=== PATIENT | female | born 2000 | race Hispanic/Latino ===

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

== ENCOUNTER 2022-04-29 23:22 | Emergency (ER) | payer OTHER ==
[2022-04-29] MEDS ORDERED: NA CHLORIDE 0.9% 1,000 ML ONE (23:47)
[2022-04-29] MEDS ORDERED: DICYCLOMINE HCL 20 MG/2 ML AMP IM ONE (23:47)
[2022-04-30 00:03] LABS: Absolute Lymphocytes (CBC) 3.5 K/uL (0.7-4.9); Hematocrit 36.1 % (36.0-45.0); Lymphocytes % 35.9 % (15.3-44.8); MPV 7.6 fL (7.6-11.3); RBC Red Blood Cell Count 4.25 M/uL (3.86-4.86)
[2022-04-30 00:34] LABS: Potassium 3.8 mmol/L (3.5-5.1)
[2022-04-30 00:46] LABS: Urine Blood Negative (Negative); Urine Glucose Negative (Negative); Urine Protein Negative (Negative); Urine Specific Gravity >=1.030 (1.005-1.030); Urine pH 6.5 (5.0-7.0)
[2022-04-30 01:20] LABS: Urine Bacteria <20 /HPF (<20); Urine Mucus Slight /HPF (None Seen)
--- NOTE | 2022-04-30 01:31 | ER ---
Nurse's Notes [facility] Name: Jaylin Day Age: 21 yrs Sex: Female : 2000 Arrival Date: 04/29/2022 Time: 23:25 Bed 20 Private MD: Diagnosis: Threatened Presentation: 04/29 23:31 Chief complaint: Patient states: "I'm 6 weeks and today I have had a little as6 bit of spotting and cramping in my back". Coronavirus screen: At this time, the client does not indicate any symptoms associated with coronavirus-19. Ebola Screen: No symptoms or risks identified at this time. Initial Sepsis Screen: Does the patient meet any 2 criteria? No. Patient's initial sepsis screen is negative. Does the patient have a suspected source of infection? No. Patient's initial sepsis screen is negative. Risk Assessment: Do you want to hurt yourself or someone else? Patient reports no desire to harm self or others. Onset of symptoms was April 29, 2022 at 20:00. 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 - Social history:: Smoking status: Patient denies any tobacco usage or history of. Screenin:58 [facility] ED Fall Risk Assessment (Adult) History of falling in the last 3 months, aa9 including since admission No falls in past 3 months (0 pts) Confusion or Disorientation No (0 pts) Intoxicated or Sedated No (0 pts) Impaired Gait No (0 pts) Mobility Assist Device Used No (0 pt) Altered Elimination No (0 pt) Score/Fall Risk Level 0 - 2 = Low Risk Oriented to surroundings, Maintained a safe environment. Abuse screen: Denies threats or abuse. Denies injuries from another. Nutritional screening: No deficits noted. Tuberculosis screening: No symptoms or risk factors identified. Assessment: 23:56 General: Appears in no apparent distress. comfortable, Behavior is calm, cooperative. aa9 Pain: Complains of pain in suprapubic area Pain currently is 4 out of 10 on a pain scale. Quality of pain is described as crampy. Neuro: Level of Consciousness is awake, alert, obeys commands, Oriented to person, place, time, situation. Cardiovascular: Patient's skin is warm and dry. Respiratory: Airway is patent Respiratory effort is even, unlabored. GI: Abdomen is obese. : Reports vaginal bleeding that is spotty. 04/30 01:40 Reassessment: Patient appears in no apparent distress at this time. Patient is alert, aa9 oriented x 3, equal unlabored respirations, skin warm/dry/pink. Patient denies pain at this time. Patient states feeling better. Vital Signs: 04/29 23:31 BP 126 / 78; Pulse 66; Resp 18 S; Temp 97.8(O); Pulse Ox 99% on R/A; Weight 101.15 kg as6 (R); Height 5 ft. 6 in. (167.64 cm) (R); Pain 4/10; 23:58 BP 117 / 70; Pulse 68; Resp 18 S; Pulse Ox 99% on R/A; aa9 04/30 01:34 BP 111 / 72; Pulse 65; Resp 18 S; Pulse Ox 98% on R/A; aa9 04/29 23:31 Body Mass Index 35.99 (101.15 kg, 167.64 cm) as6 ED Course: 04/29 23:25 Patient arrived in ED. jj6 23:27 Alexis Donaldson PA is PHCP. cp 23:27 Misha Tobar MD is Attending Physician. cp 23:31 Arm band placed on. as6 23:33 Triage completed. as6 23:35 Melissa Donis, ANNA is Primary Nurse. aa9 23:50 Inserted saline lock: 20 gauge in right antecubital area, using aseptic technique. aa9 Blood collected. 23:56 Abo/rh Typing Sent. aa9 23:56 Basic Metabolic Panel Sent. aa9 23:56 CBC with Diff Sent. aa9 23:56 Quantitative Hcg Sent. aa9 23:58 Patient has correct armband on for positive identification. Placed in gown. Bed in low aa9 position. Side rails up X2. Adult w/ patient. 04/30 00:46 Urine Microscopic Only Sent. aa9 01:39 No provider procedures requiring assistance completed. IV discontinued, intact, aa9 bleeding controlled, No redness/swelling at site. Pressure dressing applied. Administered Medications: 04/29 23:55 Drug: Dicyclomine 20 mg Route: IM; Site: right deltoid; aa9 23:56 Drug: NS 0.9% 1000 ml Route: IV; Rate: 1 bolus; Site: right antecubital; aa9 Medication: 23:58 VIS not applicable for this client. aa9 Point of Care Testing: Urine : 04/30 00:46 hCG Reading: Positive; Control Reading: Positive; aa9 Outcome: 01:31 Discharge ordered by . cp 01:39 Discharged to home ambulatory, with family. aa9 01:39 Condition: stable 01:39 Discharge instructions given to patient, Instructed on discharge instructions, follow up and referral plans. Demonstrated understanding of instructions, follow-up care. 01:40 Patient left the ED. aa9 Signatures: Alexis Donaldson PA PA cp Jeffries, Jennifer jj6 Ap Torres, ANNA RN as6 Melissa Donis RN RN aa9
--- NOTE | 2022-04-30 01:31 | EDPHYS ---
Physician Documentation [facility] Name: Jaylin Day Age: 21 yrs Sex: Female : 2000 Arrival Date: 04/29/2022 Time: 23:25 Bed 20 Private MD: ED Physician Misha Tobar HPI: 04/29 23:37 This 21 yrs old Female presents to ER via Ambulatory with complaints of Est 6 cp wks gestation, Pelvic Pain. 23:37 The patient presents to the emergency department with abdominal pain, of the right cp flank, vaginal bleeding, described as spotting. The estimated gestational age is 6 weeks. 23:37 course: care: at a clinic, Leakage of Fluid: none appreciated, cp Ultrasound: the patient had an ultrasound. Associated signs and symptoms: Pertinent negatives: chest pain, dysuria, fever, ruptured membranes, vomiting. 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 - Social history:: Smoking status: Patient denies any tobacco usage or history of. ROS: 23:40 Constitutional: Negative for body aches, chills, fever, poor PO intake. cp 23:40 Abdomen/GI: Positive for abdominal cramps, of the lower abdomen, Negative for vomiting, cp diarrhea, constipation. 23:40 Respiratory: Negative for cough, shortness of breath, wheezing. cp 23:40 : Positive for vaginal bleeding, Negative for urinary symptoms. 23:40 Neuro: Negative for altered mental status, headache, weakness. 23:40 All other systems are negative. Exam: 23:45 Constitutional: The patient appears in no acute distress, alert, awake, comfortable, cp non-toxic, well developed, well nourished, obese. 23:45 Head/Face: Normocephalic, atraumatic. cp 23:45 Eyes: Periorbital structures: appear normal, Conjunctiva: normal, no exudate, no injection, Sclera: no appreciated abnormality, Lids and lashes: appear normal, bilaterally. 23:45 ENT: External ear(s): are unremarkable, Nose: is normal, Mouth: Lips: moist, Oral mucosa: moist, Posterior pharynx: Airway: no evidence of obstruction, patent. 23:45 Chest/axilla: Inspection: normal. 23:45 Cardiovascular: Rate: normal, Rhythm: regular. 23:45 Respiratory: the patient does not display signs of respiratory distress, Respirations: normal, no use of accessory muscles, no retractions, labored breathing, is not present, Breath sounds: are clear throughout, no decreased breath sounds, no stridor, no wheezing. 23:45 Abdomen/GI: Inspection: abdomen appears normal, Palpation: soft, in all quadrants, mild abdominal tenderness, in the lower abdomen, rebound tenderness, is not appreciated, involuntary guarding, is not appreciated. 23:45 Back: ROM is normal, CVA tenderness, is absent. Vital Signs: 23:31 BP 126 / 78; Pulse 66; Resp 18 S; Temp 97.8(O); Pulse Ox 99% on R/A; Weight 101.15 kg as6 (R); Height 5 ft. 6 in. (167.64 cm) (R); Pain 4/10; 23:58 BP 117 / 70; Pulse 68; Resp 18 S; Pulse Ox 99% on R/A; aa9 04/30 01:34 BP 111 / 72; Pulse 65; Resp 18 S; Pulse Ox 98% on R/A; aa9 04/29 23:31 Body Mass Index 35.99 (101.15 kg, 167.64 cm) as6 MDM: 04/29 23:28 Patient medically screened. cp 04/30 01:30 Data reviewed: vital signs, nurses notes, lab test result(s), radiologic studies, cp ultrasound. 01:30 Consideration of Admission/Observation Escalation of care including cp admission/observation considered. Counseling: I had a detailed discussion with the patient and/or guardian regarding: the historical points, exam findings, and any diagnostic results supporting the discharge/admit diagnosis, lab results, radiology results, the need for outpatient follow up, an OB/Gyne specialist. Response to treatment: the patient's symptoms have markedly improved after treatment, and as a result, I will discharge patient. 04/29 23:28 Order name: Urine Microscopic Only cp 04/29 23:37 Order name: Abo/rh Typing cp 04/29 23:37 Order name: Basic Metabolic Panel cp 04/29 23:37 Order name: CBC with Diff cp 04/29 23:37 Order name: Quantitative Hcg cp 04/30 00:07 Order name: CBC with Automated Diff; Complete Time: 01:08 EDMS 04/30 01:09 Interpretation: Normal except: RDW 15.5. cp 04/29 23:37 Order name: US Transvaginal Ob 04/30 00:20 Order name: ABO/RH typing; Complete Time: 01:08 EDMS 04/30 01:09 Interpretation: Reviewed. 04/30 00:34 Order name: Basic Metabolic Panel; Complete Time: 01:08 EDMS 04/30 01:09 Interpretation: Normal except: CL 108; GLUC 108; CA 8.3. 04/30 00:34 Order name: HCG, Quantitative; Complete Time: 01:08 EDMS 04/30 01:09 Interpretation: HCGQ 45326; Reviewed. 04/30 00:46 Order name: Urine Dipstick-Ancillary; Complete Time: 01:08 EDMS 04/30 01:20 Order name: Urine Microscopic Only; Complete Time: 01:29 EDMS 04/30 01:30 Interpretation: Normal except: URBC 5-10. 04/29 23:28 Order name: Urine Test (obtain specimen); Complete Time: 00:46 cp 04/29 23:28 Order name: Urine Dipstick-Ancillary (obtain specimen); Complete Time: 00:46 cp 04/29 23:37 Order name: IV Saline Lock; Complete Time: 23:56 cp 04/29 23:37 Order name: Labs collected and sent; Complete Time: 23:56 cp 04/29 23:37 Order name: NPO; Complete Time: 23:56 cp Administered Medications: 04/29 23:55 Drug: Dicyclomine 20 mg Route: IM; Site: right deltoid; aa9 23:56 Drug: NS 0.9% 1000 ml Route: IV; Rate: 1 bolus; Site: right antecubital; aa9 Point of Care Testing: Urine : 04/30 00:46 hCG Reading: Positive; Control Reading: Positive; aa9 Disposition: 02:04 Co-signature as Attending Physician, Misha Tobar MD I reviewed the patient's care rn provided by the Advanced Practice Provider and agree with the diagnosis and treatment plan. Disposition Summary: 04/30/22 01:31 Discharge Ordered Location: Home cp Problem: new cp Symptoms: have improved cp Condition: Stable cp Diagnosis - Threatened cp Followup: cp - With: Private Physician - When: 1 week - Reason: Recheck today's complaints Discharge Instructions: - Discharge Summary Sheet cp - Abdominal Pain During cp - Care cp - Threatened Miscarriage cp - Vaginal Bleeding During , First Trimester cp - First Trimester of cp - Activity Restriction During cp Forms: - Medication Reconciliation Form cp - Thank You Letter cp - Antibiotic Education cp - Prescription Opioid Use cp Signatures: Dispatcher [employer] EDMisha Luevano MD MD rn Page, Corey, PA PA cp Ap Torres RN RN as6 Melissa Donis RN RN aa9
[2022-04-30 02:18] VITALS: TEMP 97.8
[2022-04-30 02:20] VITALS: BP 111/72; O2SAT 98
--- NOTE | 2022-04-30 14:44 | RAD REPORT ---
EXAM DESCRIPTION: US - Transvaginal OB - 04/30/2022 12:25 am CLINICAL HISTORY: Abd cramping, TECHNIQUE: Real-time transvaginal obstetrical ultrasound of the maternal pelvis and a first trimeste r with image documentation. Transvaginal imaging was used for better evaluation of the fe tus and adnexa. COMPARISON: No relevant prior studies available. FINDINGS: Gestation: Single intrauterine gestational sac. The crown-rump length measures 17.2 mm corresponding to an estimated gestational age of 8 weeks 0 days. cardiac activity measures 1 40 BPM. Placenta/amniotic fluid: Cannot be adequately evaluated due to the early gestational age. Uterus/cervix: The uterus is anteverted. The cervix measures 3.8 cm in length. No myometrial ma ss. Ovaries: The right ovary measures 3 x 1.8 x 1.7 cm. The left ovary is not visualized. Free fluid: No free fluid. IMPRESSION: 1. Single live intrauterine gestation. No focal complication. 2. Estimated gestational age by ultrasound is 8 weeks 0 days. 3. Estimated due date by ultrasound is 12/10/2022. Electronically signed by: Israel Crow MD 04/30/2022 12:46 AM RETAIL GREETER Due to temporary technical issues with the PACS/Fluency reporting system, reports are being signed by the in house radiologists without review as a courtesy to insure prompt reporting. The interpreting radiologist is fully responsible for the content of the report.
== END 2022-04-30 01:40 | disposition home or self-care (01) ==
LOC: ER 23:22
DX: O20.0 Threatened abortion (principal); Z88.0 Allergy status to penicillin; Z88.1 Allergy status to other antibiotic agents
CPT/HCPCS: 85025; 80048; 36415; 86900; 86901; 84702; 76817; J0500; J7030; 81003; 81015

== ENCOUNTER 2022-05-15 00:38 | Emergency (ER) | payer OTHER ==
[2022-05-15 01:27] LABS: Urine Glucose Negative (Negative)
[2022-05-15 01:28] LABS: Urine Blood Trace-intact (Negative); Urine Protein Negative (Negative); Urine pH 5.5 (5.0-7.0)
[2022-05-15] MEDS ORDERED: NA CHLORIDE 0.9% 1,000 ML ONE (02:27)
[2022-05-15 03:16] LABS: Absolute Lymphocytes (CBC) 3.8 K/uL (0.7-4.9); Hematocrit 36.7 % (36.0-45.0); Lymphocytes % 36.5 % (15.3-44.8); MCV 85.7 fL (80-100); MPV 8.1 fL (7.6-11.3); RBC Red Blood Cell Count 4.29 M/uL (3.86-4.86)
[2022-05-15 03:20] VITALS: TEMP 97.7
[2022-05-15 03:21] VITALS: BP 115/73; O2SAT 100
[2022-05-15 03:28] LABS: Potassium 3.5 mmol/L (3.5-5.1)
--- NOTE | 2022-05-15 12:29 | RAD REPORT ---
EXAM DESCRIPTION: US - Transvaginal OB - 05/15/2022 2:00 am ADDENDUM #1 THIS REPORT CONTAINS FINDINGS THAT MAY BE CRITICAL TO PATIENT CARE: The findings were verbally discu ssed via telephone conference with Dr. Alexis Goldman by Dr. Javi Potter on 05/15/2022 2:42 AM CS T .The results were acknowledged and understood. Electronically signed by: Breanna Potter MD 05/15/2022 2:42 AM LOCKSMITH End of Addendum EXAM DESCRIPTION: US , Transvaginal CLINICAL HISTORY: The patient is 21 years old and is Female; ABD CRAMPING, TECHNIQUE: Real-time transvaginal obstetrical ultrasound of the maternal pelvis and a first trimeste r with image documentation. Transvaginal imaging was used for better evaluation of the fe tus and adnexa. COMPARISON: Ultrasound April 30, 2022 FINDINGS: GESTATION: A irregular appearing intrauterine gestational sac is present. A small yolk s ac is noted. A pole with a crown-rump length of 1.7 cm correlating to 8 weeks 0 days is present . No heart tones are detected. PLACENTA/AMNIOTIC FLUID: Hypoechoic area adjacent to the gestational sac consistent with a subch orionic hemorrhage is noted. UTERUS/CERVIX: Unremarkable. No myometrial mass. OVARIES: The ovaries are not visualized. No mass. FREE FLUID: No free fluid. IMPRESSION: Findings consistent with a failed first trimester . Electronically signed by: Breanna Potter MD 05/15/2022 2:29 AM LOCKSMITH Due to temporary technical issues with the PACS/Fluency reporting system, reports are being signed by the in house radiologists without review as a courtesy to insure prompt reporting. The interpreting radiologist is fully responsible for the content of the report.
--- NOTE | 2022-05-29 16:18 | EDPHYS ---
Physician Documentation [facility] Name: Jaylin Day Age: 21 yrs Sex: Female : 2000 Arrival Date: 05/15/2022 Time: 00:44 Bed 3 Private MD: ED Physician Alexis Goldman HPI: 05/15 02:28 This 21 yrs old Female presents to ER via Ambulatory with complaints of 10 WKS arpan PREG CRAMPING SPOTING. 02:28 The patient presents to the emergency department with no movement, vaginal arpan bleeding, that is moderate. The estimated gestational age is 8 weeks. course: care: none. The patient has experienced a previous episode, last week. 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 - Social history:: Smoking status: Patient denies any tobacco usage or history of. - Family history:: not pertinent. ROS: 02:28 Constitutional: Negative for fever, chills, and weight loss, Eyes: Negative for injury, arpan pain, redness, and discharge, ENT: Negative for injury, pain, and discharge, Neck: Negative for injury, pain, and swelling, Cardiovascular: Negative for chest pain, palpitations, and edema, Respiratory: Negative for shortness of breath, cough, wheezing, and pleuritic chest pain, Abdomen/GI: Negative for abdominal pain, nausea, vomiting, diarrhea, and constipation, Back: Negative for injury and pain, : Negative for injury, bleeding, discharge, and swelling, MS/Extremity: Negative for injury and deformity, Skin: Negative for injury, rash, and discoloration, Neuro: Negative for headache, weakness, numbness, tingling, and seizure, Psych: Negative for depression, anxiety, suicide ideation, homicidal ideation, and hallucinations, Allergy/Immunology: Negative for hives, rash, and allergies, Endocrine: Negative for neck swelling, polydipsia, polyuria, polyphagia, and marked weight changes, Hematologic/Lymphatic: Negative for swollen nodes, abnormal bleeding, and unusual bruising. Exam: 02:28 Constitutional: This is a well developed, well nourished patient who is awake, alert, arpan and in no acute distress. Head/Face: Normocephalic, atraumatic. Eyes: Pupils equal round and reactive to light, extra-ocular motions intact. Lids and lashes normal. Conjunctiva and sclera are non-icteric and not injected. Cornea within normal limits. Periorbital areas with no swelling, redness, or edema. ENT: Nares patent. No nasal discharge, no septal abnormalities noted. Tympanic membranes are normal and external auditory canals are clear. Oropharynx with no redness, swelling, or masses, exudates, or evidence of obstruction, uvula midline. Mucous membranes moist. Neck: Trachea midline, no thyromegaly or masses palpated, and no cervical lymphadenopathy. Supple, full range of motion without nuchal rigidity, or vertebral point tenderness. No Meningismus. Chest/axilla: Normal chest wall appearance and motion. Nontender with no deformity. No lesions are appreciated. Cardiovascular: Regular rate and rhythm with a normal S1 and S2. No gallops, murmurs, or rubs. Normal PMI, no JVD. No pulse deficits. Respiratory: Lungs have equal breath sounds bilaterally, clear to auscultation and percussion. No rales, rhonchi or wheezes noted. No increased work of breathing, no retractions or nasal flaring. Abdomen/GI: Soft, non-tender, with normal bowel sounds. No distension or tympany. No guarding or rebound. No evidence of tenderness throughout. Back: No spinal tenderness. No costovertebral tenderness. Full range of motion. Pelvic Exam: Normal external genitalia. Speculum exam with closed cervical os, no discharge or bleeding noted. Bimanual exam with normal adnexa, no adnexal or cervical motion tenderness. Normal uterus. Skin: Warm, dry with normal turgor. Normal color with no rashes, no lesions, and no evidence of cellulitis. MS/ Extremity: Pulses equal, no cyanosis. Neurovascular intact. Full, normal range of motion. Neuro: Awake and alert, GCS 15, oriented to person, place, time, and situation. Cranial nerves II-XII grossly intact. Motor strength 5/5 in all extremities. Sensory grossly intact. Cerebellar exam normal. Normal gait. Psych: Awake, alert, with orientation to person, place and time. Behavior, mood, and affect are within normal limits. Vital Signs: 01:05 Weight 101.15 kg; Height 5 ft. 6 in. ; Pain 2/10; vc1 01:15 BP 115 / 74; Pulse 72; Resp 18; Temp 97.7; Pulse Ox 98% ; vc1 02:40 BP 115 / 73; Pulse 61; Resp 18 S; Pulse Ox 100% on R/A; as6 01:05 Body Mass Index 35.99 (101.15 kg, 167.64 cm) vc1 01:05 Pain Scale: Adult vc1 MDM: 01:06 Patient medically screened. [facility] 02:28 Differential diagnosis: Data reviewed: vital signs, nurses notes, lab test result(s), [facility] radiologic studies, ultrasound. Consideration of Admission/Observation Escalation of care including admission/observation considered. I considered the following discharge prescriptions or medication management in the emergency department Medications were administered in the Emergency Department. See MAR. Independent interpretation of the following test(s) in the Emergency Department Radiology Department Ultrasound: My interpretation is 8 weeks, no fht's. Test considered but Not performed: EKG: ekg not necessary. 05/15 01:06 Order name: Abo/rh Typing [facility] 05/15 01:06 Order name: Basic Metabolic Panel [facility] 05/15 01:06 Order name: CBC with Diff [facility] 05/15 01:06 Order name: Quantitative Hcg [facility] 05/15 01:28 Order name: Urine Dipstick-Ancillary; Complete Time: 02:15 EDMS 05/15 01:06 Order name: US Transvaginal Ob [facility] 05/15 01:06 Order name: IV Saline Lock; Complete Time: 02:40 [facility] 05/15 01:06 Order name: Labs collected and sent; Complete Time: 02:40 [facility] 05/15 01:06 Order name: NPO; Complete Time: 02:20 [facility] 05/15 01:06 Order name: Urine Dipstick-Ancillary (obtain specimen); Complete Time: 01:27 [facility] 05/15 01:06 Order name: Urine Test (obtain specimen); Complete Time: 01:27 [facility] Administered Medications: 02:30 Drug: NS 0.9% IV 1000 ml Route: IV; Rate: 1 bolus; Site: right antecubital; as6 02:52 Follow up: Response: No adverse reaction; IV Status: Completed infusion; IV Intake: as6 1000ml Point of Care Testing: Urine : 01:28 hCG Reading: Positive; Control Reading: Positive; vc1 Disposition Summary: 05/15/22 02:45 Discharge Ordered Location: Home arpan Problem: new arpan Symptoms: have improved arpan Condition: Stable arpan Diagnosis - Missed - 8 weeks arpan Followup: arpan - With: Private Physician - When: 2 - 3 days - Reason: Recheck today's complaints, Continuance of care, Re-evaluation by your physician Discharge Instructions: - Managing Loss arpan - Miscarriage, [id number] arpan - Miscarriage arpan - Discharge Summary Sheet [facility] Forms: - Prescription Opioid Use arpan - Antibiotic Education arpan - Thank You Letter [facility] - Medication Reconciliation Form [facility] Signatures: Dispatcher [employer] Alexis Wallace MD MD cha Slawson, Ashby, RN RN as6 Catherine Abbasi RN RN vc1
--- NOTE | 2022-05-29 16:18 | ER ---
Nurse's Notes [facility] Name: Jaylin Day Age: 21 yrs Sex: Female : 2000 Arrival Date: 05/15/2022 Time: 00:44 Bed 3 Private MD: Diagnosis: Missed -8 weeks Presentation: 05/15 01:05 Chief complaint: Patient states: "I am 10 wks and I'm having really bad cramps vc1 and I'm spotting and having a few clots.". Coronavirus screen: Vaccine status: Patient reports receiving the 1st dose of the Covid vaccine. Moderna Client denies travel out of the [place] in the last 14 days. At this time, the client does not indicate any symptoms associated with coronavirus-19. Ebola Screen: Patient negative for fever greater than or equal to 101.5 degrees Fahrenheit, and additional compatible Ebola Virus Disease symptoms Patient denies exposure to infectious person. Patient denies travel to an Ebola-affected area in the 21 days before illness onset. No symptoms or risks identified at this time. Risk Assessment: Do you want to hurt yourself or someone else? Patient reports no desire to harm self or others. Onset of symptoms was May 14, 2022 at 23:00. 01:05 Method Of Arrival: Ambulatory vc1 01:05 Acuity: OZ 3 vc1 02:53 Initial Sepsis Screen: Does the patient meet any 2 criteria? No. Patient's initial as6 sepsis screen is negative. Does the patient have a suspected source of infection? No. Patient's initial sepsis screen is negative. Triage Assessment: 01:09 General: Appears in no apparent distress. uncomfortable, Behavior is calm, cooperative, vc1 appropriate for age. Pain: Complains of pain in abdomen Pain does not radiate. Pain currently is 2 out of 10 on a pain scale. EENT: No deficits noted. No signs and/or symptoms were reported regarding the EENT system. Neuro: No deficits noted. Cardiovascular: No deficits noted. Respiratory: Airway is patent Respiratory effort is even, unlabored, Respiratory pattern is regular, symmetrical. GI: No deficits noted. No signs and/or symptoms were reported involving the gastrointestinal system. : No deficits noted. No signs and/or symptoms were reported regarding the genitourinary system. : Reports discharge, from vagina that is vaginal bleeding that is bright red, with clots. Derm: No deficits noted. No signs and/or symptoms reported regarding the dermatologic system. Musculoskeletal: No deficits noted. No signs and/or symptoms reported regarding the musculoskeletal system. 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 - Social history:: Smoking status: Patient denies any tobacco usage or history of. - Family history:: not pertinent. Screenin:53 [facility] ED Fall Risk Assessment (Adult) Score/Fall Risk Level 0 - 2 = Low Risk. Abuse as6 screen: Denies threats or abuse. Denies injuries from another. Nutritional screening: No deficits noted. Tuberculosis screening: No symptoms or risk factors identified. Vital Signs: 01:05 Weight 101.15 kg; Height 5 ft. 6 in. ; Pain 2/10; vc1 01:15 BP 115 / 74; Pulse 72; Resp 18; Temp 97.7; Pulse Ox 98% ; vc1 02:40 BP 115 / 73; Pulse 61; Resp 18 S; Pulse Ox 100% on R/A; as6 01:05 Body Mass Index 35.99 (101.15 kg, 167.64 cm) vc1 01:05 Pain Scale: Adult vc1 ED Course: 00:44 Patient arrived in ED. es 01:06 Alexis Goldman MD is Attending Physician. arpan 01:08 Triage completed. vc1 01:08 Arm band placed on right wrist. vc1 02:02 US Transvaginal Ob In Process Unspecified. EDMS 02:20 Ap Torres, ANNA is Primary Nurse. as6 02:25 Inserted saline lock: 20 gauge in right antecubital area, using aseptic technique. as6 Blood collected. 02:53 Bed in low position. Call light in reach. Side rails up X 1. as6 02:53 No provider procedures requiring assistance completed. IV discontinued, intact, as6 bleeding controlled, No redness/swelling at site. Pressure dressing applied. Administered Medications: 02:30 Drug: NS 0.9% IV 1000 ml Route: IV; Rate: 1 bolus; Site: right antecubital; as6 02:52 Follow up: Response: No adverse reaction; IV Status: Completed infusion; IV Intake: as6 1000ml Medication: 02:53 VIS not applicable for this client. as6 Point of Care Testing: Urine : 01:28 hCG Reading: Positive; Control Reading: Positive; vc1 Intake: 02:52 IV: 1000ml; Total: 1000ml. as6 Outcome: 02:45 Discharge ordered by . arpan 02:53 Discharged to home ambulatory. as6 02:53 Condition: stable 02:53 Discharge instructions given to patient, Instructed on discharge instructions, follow up and referral plans. Demonstrated understanding of instructions, follow-up care. 02:53 Patient left the ED. as6 Signatures: Dispatcher [employer] Alexis Wallace MD MD cha Salyer, Edna es Slawson, Ashby, RN RN as6 Catherine Abbasi RN RN vc1
== END 2022-05-15 02:53 | disposition home or self-care (01) ==
LOC: ER 00:38
DX: O02.1 Missed abortion (principal); Z3A.08 8 weeks gestation of pregnancy; Z88.0 Allergy status to penicillin; Z88.1 Allergy status to other antibiotic agents
CPT/HCPCS: 85025; 80048; 36415; 86900; 86901; 84702; 81003; 76817; 99284; J7030

== ENCOUNTER 2022-09-20 12:10 | Emergency (ER) | payer OTHER ==
[2022-09-20 12:58] LABS: Absolute Lymphocytes (CBC) 2.5 K/uL (0.7-4.9); Lymphocytes % 24.2 % (15.3-44.8); MCV 80.6 fL (80-100); MPV 7.6 fL (7.6-11.3); RBC Red Blood Cell Count 4.59 M/uL (3.86-4.86)
[2022-09-20 12:59] LABS: Specific Gravity 1.022 (1.005-1.030)
[2022-09-20 13:03] LABS: Specific Gravity 1.022 (1.005-1.030); Urine Bacteria >50 /HPF (<20); Urine Bilirubin NEGATIVE (Negative); Urine Blood 1+ (Negative); Urine Clarity Extremely Turbid (Clear); Urine Color Light-Yellow (Yellow); Urine Glucose NEGATIVE (Negative); Urine Mucus Slight /HPF (None Seen); Urine Protein 1+ (Negative); Urine RBC 21-50 /HPF (None Seen); Urine Urobilinogen Normal (Normal); Urine WBC Clump Occasional /HPF (None Seen)
[2022-09-20 13:17] LABS: Albumin 3.6 g/dL (3.4-5.0); Bilirubin Total 0.3 mg/dL (0.2-1.0); Protein, Total 7.1 g/dL (6.4-8.2)
--- NOTE | 2022-09-20 13:42 | ER ---
Nurse's Notes [facility] Name: Jaylin Day Age: 22 yrs Sex: Female : 2000 Arrival Date: 09/20/2022 Time: 12:10 Bed 16 Private MD: Diagnosis: UTI/ Urinary tract infection, site not specified Presentation: 09/20 12:20 Chief complaint: Patient states: left lower abd pain X 3 days, worse today. Coronavirus iw screen: At this time, the client does not indicate any symptoms associated with coronavirus-19. Ebola Screen: Patient negative for fever greater than or equal to 101.5 degrees Fahrenheit, and additional compatible Ebola Virus Disease symptoms Patient denies exposure to infectious person. Patient denies travel to an Ebola-affected area in the 21 days before illness onset. No symptoms or risks identified at this time. Initial Sepsis Screen: Does the patient meet any 2 criteria? No. Patient's initial sepsis screen is negative. Does the patient have a suspected source of infection? No. Patient's initial sepsis screen is negative. Risk Assessment: Do you want to hurt yourself or someone else? Patient reports no desire to harm self or others. Onset of symptoms was September 19, 2022. 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 - Social history:: Smoking status: Patient denies any tobacco usage or history of. Screenin:30 [facility] ED Fall Risk Assessment (Adult) Score/Fall Risk Level 0 - 2 = Low Risk. Abuse eh3 screen: Denies threats or abuse. Denies injuries from another. Nutritional screening: No deficits noted. Tuberculosis screening: No symptoms or risk factors identified. Assessment: 12:30 General: Appears in no apparent distress. uncomfortable, Behavior is calm, cooperative, eh3 appropriate for age. Pain: Complains of pain in left flank Pain radiates to back. Neuro: Level of Consciousness is awake, alert, obeys commands, Oriented to person, place, time, situation. Cardiovascular: Capillary refill < 3 seconds Patient's skin is warm and dry. Respiratory: Airway is patent Respiratory effort is even, unlabored, Respiratory pattern is regular, symmetrical. GI: Abdomen is round non-distended, Bowel sounds present X 4 quads. Abd is soft and non tender X 4 quads. Derm: Skin is intact, is healthy with good turgor. Musculoskeletal: Circulation, motion, and sensation intact. 13:00 Reassessment: Patient appears in no apparent distress at this time. Patient and/or eh3 family updated on plan of care and expected duration. Pain level reassessed. Patient is alert, oriented x 3, equal unlabored respirations, skin warm/dry/pink. 14:00 Reassessment: Patient appears in no apparent distress at this time. Patient and/or eh3 family updated on plan of care and expected duration. Pain level reassessed. Patient is alert, oriented x 3, equal unlabored respirations, skin warm/dry/pink. Vital Signs: 12:21 BP 115 / 76; Pulse 71; Resp 16; Pulse Ox 98% on R/A; Weight 110.22 kg; Height 5 ft. 6 iw in. ; Pain 2/10; 13:00 BP 111 / 78; Pulse 69; Resp 16; Pulse Ox 96% on R/A; eh3 14:00 BP 117 / 73; Pulse 71; Resp 18; Pulse Ox 97% on R/A; eh3 12:21 Body Mass Index 39.22 (110.22 kg, 167.64 cm) iw 12:21 Pain Scale: Adult iw ED Course: 12:12 Patient arrived in ED. ts1 12:13 Shirley Howell FNP-C is PHCP. kb 12:13 Alexis Goldman MD is Attending Physician. kb 12:20 Triage completed. iw 12:21 Arm band placed on. iw 12:26 Natividad Alamo, RN is Primary Nurse. eh3 12:30 Patient has correct armband on for positive identification. Bed in low position. Call eh3 light in reach. Side rails up X2. Adult w/ patient. Provided Education on: N/A. Pulse ox on. NIBP on. Door closed. Noise minimized. Lights dimmed. 12:47 Inserted saline lock: 20 gauge in left antecubital area, using aseptic technique. Blood eh3 collected. 14:01 No provider procedures requiring assistance completed. IV discontinued, intact, eh3 bleeding controlled, No redness/swelling at site. Pressure dressing applied. Administered Medications: 14:00 Drug: Macrobid PO 100 mg Route: PO; 3 14:01 Follow up: Response: Medication administered at discharge. 3 Medication: 14:01 VIS not applicable for this client. 3 Outcome: 13:41 Discharge ordered by . mya 14:01 Discharged to home ambulatory, with significant other. 3 14:01 Condition: stable 14:01 Discharge instructions given to patient, Instructed on discharge instructions, follow up and referral plans. medication usage, Demonstrated understanding of instructions, follow-up care, medications, Prescriptions given X 1. 14:02 Patient left the ED. 3 Signatures: Shirley Howell, HALLIE-Ashish STERLING-Vidhi Saba, RN ANNA Natividad Alamo RN RN 3 Jenae Pham, PAS PAS ts1
--- NOTE | 2022-09-20 13:42 | EDPHYS ---
Physician Documentation [facility] Name: Jaylin Dya Age: 22 yrs Sex: Female : 2000 Arrival Date: 09/20/2022 Time: 12:10 Bed 16 Private MD: ED Physician Alexis Goldman HPI: 09/20 13:39 This 22 yrs old Female presents to ER via Ambulatory with complaints of kb Abdominal Pain. 13:39 The patient presents with urinary symptoms, dysuria, frequency, urgency. Onset: The kb symptoms/episode began/occurred 2 day(s) ago. Modifying factors: The symptoms are alleviated by nothing, the symptoms are aggravated by urinating. Associated signs and symptoms: Pertinent positives: dysuria, urinary frequency. Severity of symptoms: At their worst the symptoms were moderate, in the emergency department the symptoms are unchanged. The patient has not experienced similar symptoms in the past. The patient has not recently seen a physician. 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 - Social history:: Smoking status: Patient denies any tobacco usage or history of. ROS: 13:39 Respiratory: Negative for shortness of breath, cough, wheezing, and pleuritic chest kb pain. 13:39 Constitutional: Positive for fever. 13:39 Abdomen/GI: Positive for abdominal pain, Negative for nausea, vomiting, and diarrhea. 13:39 : Positive for urinary symptoms, urinary frequency, small amounts, burning with urination. 13:39 All other systems are negative. Exam: 13:39 Constitutional: This is a well developed, well nourished patient who is awake, alert, kb and in no acute distress. Head/Face: Normocephalic, atraumatic. ENT: Moist Mucous membranes Cardiovascular: Regular rate and rhythm with a normal S1 and S2. No gallops, murmurs, or rubs. No pulse deficits. Respiratory: Respirations even and unlabored. No increased work of breathing. Talking in full sentences Abdomen/GI: Soft, non-tender. No distention Back: No spinal tenderness. No costovertebral tenderness. Full range of motion. Skin: Warm, dry with normal turgor. Normal color. MS/ Extremity: Pulses equal, no cyanosis. Neurovascular intact. Full, normal range of motion. Neuro: Awake and alert, GCS 15, oriented to person, place, time, and situation. Moves all extremities. Normal gait. Vital Signs: 12:21 BP 115 / 76; Pulse 71; Resp 16; Pulse Ox 98% on R/A; Weight 110.22 kg; Height 5 ft. 6 iw in. ; Pain 2/10; 13:00 BP 111 / 78; Pulse 69; Resp 16; Pulse Ox 96% on R/A; eh3 14:00 BP 117 / 73; Pulse 71; Resp 18; Pulse Ox 97% on R/A; eh3 12:21 Body Mass Index 39.22 (110.22 kg, 167.64 cm) iw 12:21 Pain Scale: Adult iw MDM: 12:13 Patient medically screened. kb 13:39 Data reviewed: vital signs, nurses notes. kb 13:40 Differential diagnosis: urinary tract infection, pyelonephritis, kidney stone. kb Counseling: I had a detailed discussion with the patient and/or guardian regarding: the historical points, exam findings, and any diagnostic results supporting the discharge/admit diagnosis, lab results, the need for outpatient follow up, a family practitioner, to return to the emergency department if symptoms worsen or persist or if there are any questions or concerns that arise at home. 09/20 12:17 Order name: CBC with Diff; Complete Time: 13:08 kb 09/20 12:17 Order name: CMP; Complete Time: 13:21 kb 09/20 12:17 Order name: Lipase; Complete Time: 13:21 kb 09/20 12:17 Order name: Test, Urine; Complete Time: 13:01 kb 09/20 12:17 Order name: Urinalysis w/ reflexes; Complete Time: 13:08 kb 09/20 13:06 Order name: Urine Culture EDSC 09/20 12:17 Order name: IV Saline Lock; Complete Time: 12:54 kb 09/20 12:17 Order name: Labs collected and sent; Complete Time: 12:54 kb Administered Medications: 14:00 Drug: Macrobid PO 100 mg Route: PO; 3 14:01 Follow up: Response: Medication administered at discharge. 3 Disposition Summary: 09/20/22 13:41 Discharge Ordered Location: Home kb Condition: Stable kb Diagnosis - UTI/ Urinary tract infection, site not specified kb Followup: kb - With: Emergency Department - When: As needed - Reason: Worsening of condition Followup: kb - With: Private Physician - When: 2 - 3 days - Reason: Recheck today's complaints, Continuance of care, Re-evaluation by your physician Discharge Instructions: - Discharge Summary Sheet kb - Urinary Tract Infection, Adult, [id number] kb Forms: - Medication Reconciliation Form kb - Thank You Letter kb - Antibiotic Education kb - Prescription Opioid Use kb - Patient Portal Instructions kb Prescriptions: - Macrobid 100 mg Oral Capsule - take 1 capsule by ORAL route every 12 hours for 10 days; 20 capsule; Refills: kb 0, Product Selection Permitted Signatures: Dispatcher [employer] Shirley Kaminski, HALLIE-C PRODUCT SUPPORT SPECIALIST-Vidhi Saba, RN ANNA Natividad Alamo RN RN eh3
[2022-09-20] MEDS ORDERED: NITROFURAN MACRO 100 MG CAP PO ONE (14:05)
[2022-09-20 14:19] VITALS: BP 117/73; O2SAT 97
== END 2022-09-20 14:02 | disposition home or self-care (01) ==
LOC: ER 12:10
DX: N39.0 Urinary tract infection, site not specified (principal); Z88.0 Allergy status to penicillin; Z88.1 Allergy status to other antibiotic agents
CPT/HCPCS: 36415; 80053; 81001; 81025; 83690; 85025; 87077; 87086; 87088; 87186; 99284